=== PATIENT | female | born 1995 | race Caucasian/White ===

== ENCOUNTER 2016-06-08 15:56 | Emergency (ER) | payer MEDICAID ==
[~2016-06-08] VITALS: Ht 172.7 cm; Wt 76.2 kg
[~2016-06-08 15:56] MED LIST: AMOXICILLIN500 M2 PO; AUGMENTIN 875-1 EACH PO; BACTRIM DS 8001 TA1 PO; BACTRIM DS 8001 TAB PO; BENADRYL 25MG C25 MG PO; BENZONATATE100 MG PO; HYDROCODONE1 TABLET PO; IBUPROFEN400 MG PO; IMPLANON68 MG; KEFLEX 250MG.250 MG PO; MEDROL 4MG. DOSE4 MG PO; MONO-LINYAH1 TAB PO; MOTRIN 400MG.400 MG PO; NATURAL IRON65 MG PO; NOMEDS; NOMEDS XX; PERCOCET 5/3251 EACH PO; PHENERGAN 25MG.25 M1 PO; PHENERGAN25 M2 RC; PHENERGAN25 M3 PO; PREDNISONE 5MG.5 MG PO; PRENATAL1 TA2 PO; PRILOSEC OTC20 MG; PROVERA10 MG OR; PYRIDIUM200 M1 PO; SEPTRA DS 800 M1 TAB PO; TYLENOL W/CODEI1 TA2 PO; TYLENOL325 MG PO; ZOFRAN ODT4 MG PO; ZOFRAN4 MG PO
[2016-06-08 16:21] LABS: URINE BILIRUBIN - DIPSTICK NEGATIVE (NEG); URINE BLOOD NEGATIVE (NEG)
[2016-06-08 16:34] LABS: HEMOGLOBIN 12.9 g/dL (12.2-16.2); LYMPH # 2.5 K/mm3 (0.7-4.5); LYMPH % 25.1 % (10-50.0)
[2016-06-08 16:43] LABS: URINE SQUAMOUS CELLS 20-50 #/hpf (0-5)
[2016-06-08] MEDS ORDERED: AMOXICILLIN875 MG PO (16:53)
--- NOTE | 2016-06-08 16:53 | Emergency Room Report ---
History of Present Illness Time Seen by 1603 Presenting Problem in Triage Pt arrived:Walked Presenting Problem:PT STATES WOKE UP THIS AM WITH SHARP PAIN IN UPPER STOMACH- EPIGASTRIC AREA PT STATES PAIN IS INTERMITTENT IN NATURE. 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 N Clinical Suspician of Infection? N Mental Status: 1 - Regular (Normal Baseline) Sepsis Risk:Low Sepsis Risk Have you (or family members/close friends) recently traveled outside the [place]? N If Yes, where/when: Have you had exposure to infectious disease within the past month? N TB? Other? Specify: Source patient, RN notes reviewed, family, RN/MD Exam Limitations no limitations Comment This is a 21-year-old female patient presenting to the emergency room with upper abdominal pain, onset at 9:00 this morning, described as cramping. She is 9 weeks , denies any vaginal discharge or vaginal bleeding. Patient is A0, denies any, but patient's with first . She had on the Internet she could have [place] contractions, which is the reason she is here today. ALLERGIES Coded Allergies: SHELLFISH (FOOD) (From SHELLFISH (FOOD/DRUG)) (Intermediate, - 02/23/15) shellfish derived (From SHELLFISH (FOOD/DRUG)) (Intermediate, - 02/23/15) SEAFOOD (F) (03/18/15) History Medical History General CAD? No Angina: No [place]: No Hypertension? No Hyperlipidemia? No CHF? No DVT? No PE? No COPD? No Asthma? Yes Anemia? No GERD? No Gastric ulcers? No GI Bleed? No Hernia? No Thyroid Problems? No Hypothyroidism? No CVA? No Seizures? No Diabetes? No Insulin Dependent: No Insulin Pump: No Home FSBS? No Renal Insuffiency? No End Stage Renal Disease? No UTI? No Stones? No BPH? No GB Disease: No Nephritic Syndrome? No Asplenia? No Hepatitis? No Sickle Cell Disease? No Arthritis? No Migraines? No Cataracts? No Glaucoma? No MRSA? No HIV? No TB? No Anxiety? No Depression? No Cancer? No More? 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 No: respiratory distress. Lung Sounds bilateral: normal breath sounds, lungs clear. 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 No Comment Upon reevaluation the patient appears medically stable, afebrile and nonseptic looking. Advised patient of findings, instructed her to drink plenty of fluids, take antibiotics prescribed as directed, take Tylenol as needed for pain every 4 -6 hours and follow-up with ObGyn if not better early next week. Results/Orders Laboratory Tests 06/08/16 1615: Sodium 136, Potassium 4.0, Chloride 103, Carbon Dioxide 25, BUN 7, Creatinine 0.6, Estimated Creat Clear 180, Estimated GFR (MDRD) 127, Glucose 81, Calcium 8.2 L, Total Bilirubin 0.2, AST 14 L, ALT 26, Alkaline Phosphatase 69, Total Protein 7.1, Albumin 3.6, Globulin 3.5 H, Albumin/Globulin Ratio 1.0 L, Beta HCG, Quant 611742.6, WBC 10.0, RBC 4.36, Hgb 12.9, Hct 37.6, MCV 86.3, RDW 14.8, Plt Count 321, Gran % 69.7, Gran # 7.0, Lymphocytes % 25.1, Monocytes % 5.2, Lymphocytes # 2.5, Monocytes # 0.5, PUBS MCHC 34.3, MCH 29.6 06/08/16 1605: Urine Color YELLOW, Urine Appearance CLEAR, Urine pH 6.0, Ur Specific [place] 1.025, Urine Protein NEGATIVE, Urine Ketones NEGATIVE, Urine Blood NEGATIVE, Urine Nitrate NEGATIVE, Urine Bilirubin NEGATIVE, Urine Urobilinogen 0.2, Ur Leukocyte Esterase 2+ H, Urine RBC OCC, Urine WBC 10-20, Ur Squamous Epith Cells 20-50, Urine Bacteria 3+, Urine Glucose NEGATIVE Current Medication Orders Sig/Stepan Start time Last Medication Dose Route Stop Time Status Admin Amoxicillin 500 MG ONCE ONE 06/08 1645 CAN PO 06/08 1646 Orders Procedure Date/time Status CBC WITH AUTO DIFF 06/08 1606 Complete CHEM 12 PROFILE 06/08 1606 Complete BETA-HCG, QUANT 06/08 1606 Complete CULTURE, URINE 06/08 1605 Active URINALYSIS/COMPLETE 06/08 1600 Complete URINE 06/08 1600 Active Departure Departure Time of Disposition 1659 Disposition DC Home or Self Care(routine) Clinical Impression Primary Impression: Urinary tract infection Qualifiers: Urinary tract infection type: site unspecified Hematuria presence: without hematuria Qualified Code: N39.0 - Urinary tract infection, site not specified Secondary Impressions: Abdominal pain Qualifiers: Abdominal location: unspecified location Qualified Code: R10.9 - Unspecified abdominal pain Condition STABLE Referrals Amadou PIERCE,A.C. (Family) Patient Instructions DI for Urinary Tract Infection (UTI) Additional Instructions Please drink plenty of fluids, take antibiotics prescribed as directed, Tylenol every 4-6 hours as needed for pain, follow-up with your ObGyn if no better, in 2 -3 days. Discharge Counseling Counseled pt/family regarding diagnosis, test results, medications/RX, home care, follow up needs Comment Please drink plenty of fluids, take antibiotics prescribed as directed, Tylenol every 4-6 hours as needed for pain, follow-up with your ObGyn if no better, in 2 -3 days. Prescriptions Current Visit Scripts AMOXICILLIN (Amoxicillin 875MG Tab) 875 MG PO BID #20 TAB ED Critical Care Critical Care No at 1700
[2016-06-08 17:05] VITALS: BP 116/61
== END 2016-06-08 17:06 | disposition home or self-care (01) ==
LOC: ER 15:56
PROVIDERS: Emergency Medicine
DX: O23.11 Infections of bladder in pregnancy, first trimester (principal); Z3A.09 9 weeks gestation of pregnancy

== ENCOUNTER 2016-06-13 03:49 | Emergency (ER) | payer MEDICAID ==
[~2016-06-13] VITALS: Ht 172.7 cm; Wt 77.1 kg
[~2016-06-13 03:49] MED LIST changes: +AMOXICILLIN875 MG PO
[2016-06-13] MEDS ORDERED: RA PRENATAL TA1 EACH PO (04:03)
[2016-06-13 04:09] LABS: URINE BILIRUBIN - DIPSTICK NEGATIVE (NEG); URINE BLOOD NEGATIVE (NEG)
--- NOTE | 2016-06-13 04:20 | Emergency Room Report ---
History of Present Illness Time Seen by 0400 Presenting Problem in Triage Pt arrived:Walked Presenting Problem:C/O LOWER ABDOMINAL PAIN/PRESSURE. 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 N Clinical Suspician of Infection? Y Mental Status: 1 - Regular (Normal Baseline) Sepsis Risk:Low Sepsis Risk Have you (or family members/close friends) recently traveled outside the [place]? N If Yes, where/when: Have you had exposure to infectious disease within the past month? N TB? Other? Specify: Source patient, RN notes reviewed, old records Exam Limitations no limitations Comment intetmittant lower abd pain with occ spotting in this wf who is about 10 weeks and concerned about - no sev pain or bleeding Cardiac Chest Pain Chest pain indicative of cardiac No Timing/Duration this evening Severity moderate ALLERGIES Coded Allergies: SHELLFISH (FOOD) (From SHELLFISH (FOOD/DRUG)) (Intermediate, - 02/23/15) shellfish derived (From SHELLFISH (FOOD/DRUG)) (Intermediate, - 02/23/15) SEAFOOD (F) (03/18/15) Home Medications Active Scripts AMOXICILLIN (Amoxicillin 875MG Tab) 875 MG PO BID #20 TAB Prov: 06/08/16 Reported Medications Vit/Iron Fumarate/FA (Ra Tablet) 1 EACH PO DAILY #30 History Medical History General CAD? No Angina: No [place]: No Hypertension? No Hyperlipidemia? No CHF? No DVT? No PE? No COPD? No Asthma? Yes Anemia? No GERD? No Gastric ulcers? No GI Bleed? No Hernia? No Thyroid Problems? No Hypothyroidism? No CVA? No Seizures? No Diabetes? No Insulin Dependent: No Insulin Pump: No Home FSBS? No Renal Insuffiency? No End Stage Renal Disease? No UTI? No Stones? No BPH? No GB Disease: No Nephritic Syndrome? No Asplenia? No Hepatitis? No Sickle Cell Disease? No Arthritis? No Migraines? No Cataracts? No Glaucoma? No MRSA? No HIV? No TB? No Anxiety? No Depression? No Cancer? No More? 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 Respiratory denies cough, denies shortness of breath, denies wheezing Cardiovascular denies chest pain, denies palpitations, denies syncope Gastrointestinal denies abdominal pain, denies diarrhea, denies vomiting Genitourinary see HPI. denies: abnormal vaginal bleeding, dysuria, frequency, hesitancy, hematuria. Musculoskeletal denies back pain, denies joint pain, denies joint swelling, denies neck pain Skin denies rash Psychiatric/Neurological denies headache, denies seizure Physical Exam Vital Signs Vital Signs Date Time Temp Pulse Resp B/P Pulse O2 O2 Flow FiO2 Ox Delivery Rate 06/13 0355 98.7 89 18 135/86 100 - WBC >12,000 or <4,000 or 10% bands? 2 or more SIRS Criteria Met? B/P:135/86 MAP:102 Creatinine >2.0? UA output<0.5ml/kg/hr for 2 hrs? Platelet count >100,000? Lactate >2.0mmol/1? INR >1.2 or PTT > than 60 sec? Evidence of Organ Dysfunction? Provider documented clinical suspician of infection? Y Sepsis Criteria Count: 1 Sepsis Risk: Low Sepsis Risk General Appearance no apparent distress Eye Exam - bilateral eye PERRL, bilateral eye EOMI Ear, Nose, Throat normal ENT inspection Neck supple Respiratory Status No: respiratory distress. 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 No Results/Orders Laboratory Tests 06/13/16 0355: Urine Color YELLOW, Urine Appearance CLEAR, Urine pH 7.5, Ur Specific [place] 1.010, Urine Protein NEGATIVE, Urine Ketones NEGATIVE, Urine Blood NEGATIVE, Urine Nitrate NEGATIVE, Urine Bilirubin NEGATIVE, Urine Urobilinogen 0.2, Ur Leukocyte Esterase 1+ H, Urine WBC 10-20, Ur Squamous Epith Cells 10-20, Amorphous Sediment 1+, Urine Bacteria 1+, Urine Trichomonas 1+, Urine Glucose NEGATIVE Orders Procedure Date/time Status CULTURE, URINE 06/13 354 Active URINALYSIS/COMPLETE 06/14 351 Complete Departure Departure Time of Disposition 430 Disposition DC Home or Self Care(routine) Clinical Impression Primary Impression: Qualifiers: Weeks of gestation: 10 weeks Qualified Code: Z3A.10 - 10 weeks gestation of Condition STABLE Referrals Golden PIERCE,Scott Modi Patient Instructions DI for -- Discomforts and Remedies Additional Instructions call ob this am for follow up Discharge Counseling Counseled pt/family regarding diagnosis, test results, medications/RX, follow up needs ED Critical Care Critical Care No Comments offered to have pt wait till u/s pharmacy technician infusion come in this am as she was stable and known iup - at 0439
--- NOTE | 2016-06-13 04:20 | Emergency Room Report ---
History of Present Illness Time Seen by 0400 Presenting Problem in Triage Pt arrived:Walked Presenting Problem:C/O LOWER ABDOMINAL PAIN/PRESSURE. 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 N Clinical Suspician of Infection? Y Mental Status: 1 - Regular (Normal Baseline) Sepsis Risk:Low Sepsis Risk Have you (or family members/close friends) recently traveled outside the [place]? N If Yes, where/when: Have you had exposure to infectious disease within the past month? N TB? Other? Specify: Source patient, RN notes reviewed, old records Exam Limitations no limitations Comment intetmittant lower abd pain with occ spotting in this wf who is about 10 weeks and concerned about - no sev pain or bleeding Cardiac Chest Pain Chest pain indicative of cardiac No Timing/Duration this evening Severity moderate ALLERGIES Coded Allergies: SHELLFISH (FOOD) (From SHELLFISH (FOOD/DRUG)) (Intermediate, - 02/23/15) shellfish derived (From SHELLFISH (FOOD/DRUG)) (Intermediate, - 02/23/15) SEAFOOD (F) (03/18/15) Home Medications Active Scripts AMOXICILLIN (Amoxicillin 875MG Tab) 875 MG PO BID #20 TAB Prov: 06/08/16 Reported Medications Vit/Iron Fumarate/FA (Ra Tablet) 1 EACH PO DAILY #30 History Medical History General CAD? No Angina: No [place]: No Hypertension? No Hyperlipidemia? No CHF? No DVT? No PE? No COPD? No Asthma? Yes Anemia? No GERD? No Gastric ulcers? No GI Bleed? No Hernia? No Thyroid Problems? No Hypothyroidism? No CVA? No Seizures? No Diabetes? No Insulin Dependent: No Insulin Pump: No Home FSBS? No Renal Insuffiency? No End Stage Renal Disease? No UTI? No Stones? No BPH? No GB Disease: No Nephritic Syndrome? No Asplenia? No Hepatitis? No Sickle Cell Disease? No Arthritis? No Migraines? No Cataracts? No Glaucoma? No MRSA? No HIV? No TB? No Anxiety? No Depression? No Cancer? No More? 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 Respiratory denies cough, denies shortness of breath, denies wheezing Cardiovascular denies chest pain, denies palpitations, denies syncope Gastrointestinal denies abdominal pain, denies diarrhea, denies vomiting Genitourinary see HPI. denies: abnormal vaginal bleeding, dysuria, frequency, hesitancy, hematuria. Musculoskeletal denies back pain, denies joint pain, denies joint swelling, denies neck pain Skin denies rash Psychiatric/Neurological denies headache, denies seizure Physical Exam Vital Signs Vital Signs Date Time Temp Pulse Resp B/P Pulse O2 O2 Flow FiO2 Ox Delivery Rate 06/13 0355 98.7 89 18 135/86 100 - WBC >12,000 or <4,000 or 10% bands? 2 or more SIRS Criteria Met? B/P:135/86 MAP:102 Creatinine >2.0? UA output<0.5ml/kg/hr for 2 hrs? Platelet count >100,000? Lactate >2.0mmol/1? INR >1.2 or PTT > than 60 sec? Evidence of Organ Dysfunction? Provider documented clinical suspician of infection? Y Sepsis Criteria Count: 1 Sepsis Risk: Low Sepsis Risk General Appearance no apparent distress Eye Exam - bilateral eye PERRL, bilateral eye EOMI Ear, Nose, Throat normal ENT inspection Neck supple Respiratory Status No: respiratory distress. 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 No Results/Orders Laboratory Tests 06/13/16 0355: Urine Color YELLOW, Urine Appearance CLEAR, Urine pH 7.5, Ur Specific [place] 1.010, Urine Protein NEGATIVE, Urine Ketones NEGATIVE, Urine Blood NEGATIVE, Urine Nitrate NEGATIVE, Urine Bilirubin NEGATIVE, Urine Urobilinogen 0.2, Ur Leukocyte Esterase 1+ H, Urine WBC 10-20, Ur Squamous Epith Cells 10-20, Amorphous Sediment 1+, Urine Bacteria 1+, Urine Trichomonas 1+, Urine Glucose NEGATIVE Orders Procedure Date/time Status CULTURE, URINE 06/13 354 Active URINALYSIS/COMPLETE 06/14 351 Complete Departure Departure Time of Disposition 430 Disposition DC Home or Self Care(routine) Clinical Impression Primary Impression: Qualifiers: Weeks of gestation: 10 weeks Qualified Code: Z3A.10 - 10 weeks gestation of Condition STABLE Referrals Golden PIERCE,Scott Modi Patient Instructions DI for -- Discomforts and Remedies Additional Instructions call ob this am for follow up Discharge Counseling Counseled pt/family regarding diagnosis, test results, medications/RX, follow up needs ED Critical Care Critical Care No Comments offered to have pt wait till u/s profile grinder technician come in this am as she was stable and known iup - at 0432
[2016-06-13 04:38] VITALS: BP 125/76
== END 2016-06-13 04:39 | disposition home or self-care (01) ==
LOC: ER 03:49
PROVIDERS: Emergency Medicine
DX: Z3A.10 10 weeks gestation of pregnancy (principal)

== ENCOUNTER 2016-09-30 22:24 | Emergency (ER) | payer MEDICAID ==
[~2016-09-30] VITALS: Ht 175.3 cm
[~2016-09-30 22:24] MED LIST changes: +RA PRENATAL TA1 EACH PO
== END 2016-09-30 23:37 | disposition left against medical advice (07) ==
LOC: ER 22:24
DX: Z53.29 Procedure and treatment not carried out because of patient's decision for other reasons (principal)

== ENCOUNTER 2016-11-06 00:47 | Outpatient (CLI) | payer MEDICAID ==
[~2016-11-06] VITALS: Ht 172.7 cm; Wt 89.4 kg
[2016-11-06 01:12] VITALS: BP 126/69
[2016-11-06 01:24] LABS: URINE BILIRUBIN - DIPSTICK NEGATIVE (NEG); URINE BLOOD NEGATIVE (NEG)
[2016-11-06 01:29] LABS: AMPHETAMINES/METAMPHETAMINES NEGATIVE ng/mL (<1000)
== END 2016-11-06 01:50 | disposition home or self-care (01) ==
LOC: OBOUT 00:47 → OB 00:49 → OBOUT 01:50
PROVIDERS: Obstetrics & Gynecology
DX: O26.93 Pregnancy related conditions, unspecified, third trimester (principal); Z3A.30 30 weeks gestation of pregnancy; M54.5 Low back pain

== ENCOUNTER → 2016-11-15 | Outpatient (CLI) | payer MEDICAID ==
--- NOTE | 2016-11-15 15:24 | RADIOLOGY REPORT PS360 ---
US PREG FOLLOWUP SINGLE FETUS INDICATION: DECREASED MOVEMENT. TECHNIQUE: ultrasound transabdominal scanning/ MW COMPARISON: 20 week anatomy scan 08/22/2016 study performed due to decreased movement of the fetus FINDINGS Single viable intrauterine gestation. Cephalic position. The cervix appears satisfactory. Long, closed and measuring 2.34 centimeter in length. Complete survey performed and was unremarkable on the submitted images as in PACS.No discrete anomalies identified on survey imaging by technologist Active fetus. Three-vessel cord with satisfactory umbilical cord insertion. . Survey of brain & ventricles. Face and neck survey unremarkable. Diaphragm & views chest unremarkable. abdomen: Both kidneys noted & unremarkable. Stomach noted & satisfactory. spine: Survey of the spine satisfactory with no anomalies identified nor imaged Both arms and legs noted. Amniotic fluid.-Adequate. Maternal adnexa -no significant findings. measurements:. Average ultrasound age 31 weeks 4 days. Gestational age 32 weeks 6 days. BPD = 1.79 cm equaling 31 weeks 2 days OFD = 1 0.7 cm equaling 34 weeks 0 days HC = 29.4 cm equaling 32 weeks 4 days AC = 26.75 cm equaling 31 weeks 0 days FL = 5.95 cm equaling 31 weeks 1 day Heart rate = 140 BPM. Biophysical profile was 8 out of 8 Umbilical artery peak systolic velocity was 45.6 cm/s and end-diastolic velocity 16.0 cm/s. The R I is 0.65 and the SD ratio is 2.9 IMPRESSION: Single viable intrauterine gestation in breech position currently. 31 weeks 4 daysaverage ultrasound age with today's measurements Anterior placenta. Active fetus. No discrete abnormalities on the ultrasound survey.
== END ==
LOC: RAD 12:47
DX: O36.5131 Maternal care for known or suspected placental insufficiency, third trimester, fetus 1 (principal)

== ENCOUNTER 2016-11-26 20:13 | Outpatient (CLI) | payer MEDICAID ==
[~2016-11-26] VITALS: Ht 170.2 cm; Wt 92.1 kg
[2016-11-26 20:32] VITALS: BP 129/68
[2016-11-26 20:44] LABS: URINE BILIRUBIN - DIPSTICK NEGATIVE (NEG); URINE BLOOD NEGATIVE (NEG)
[2016-11-26 20:51] LABS: AMPHETAMINES/METAMPHETAMINES NEGATIVE ng/mL (<1000)
== END 2016-11-26 22:50 | disposition home or self-care (01) ==
LOC: OBOUT 20:13 → OB 20:15 → OBOUT 22:50
PROVIDERS: Nurse Practitioner Obstetrics & Gynecology
DX: O60.03 Preterm labor without delivery, third trimester (principal); Z3A.34 34 weeks gestation of pregnancy

== ENCOUNTER 2016-11-27 16:31 | Outpatient (CLI) | payer MEDICAID | END 2016-11-27 17:11 | disposition home or self-care (01) | LOC: OBOUT 16:31 → OB 16:34 → OBOUT 17:11 | DX: O60.03 Preterm labor without delivery, third trimester (principal); Z3A.34 34 weeks gestation of pregnancy ==

== ENCOUNTER 2016-11-28 02:53 | Outpatient (CLI) | payer MEDICAID ==
[~2016-11-28] VITALS: Ht 170.2 cm; Wt 93.9 kg
[2016-11-28 03:00] VITALS: BP 133/62
== END 2016-11-28 03:40 ==
LOC: OBOUT 02:53 → OB 02:53 → OBOUT 03:40
DX: O60.03 Preterm labor without delivery, third trimester (principal); Z3A.34 34 weeks gestation of pregnancy

== ENCOUNTER 2016-11-29 01:50 | Outpatient (CLI) | payer MEDICAID ==
[~2016-11-29] VITALS: Ht 170.2 cm; Wt 93.9 kg
[2016-11-29 02:02] VITALS: BP 127/67
== END 2016-11-29 03:00 ==
LOC: OBOUT 01:50 → OB 01:50 → OBOUT 03:00
DX: O26.93 Pregnancy related conditions, unspecified, third trimester (principal); Z3A.34 34 weeks gestation of pregnancy; O36.8190 Decreased fetal movements, unspecified trimester, not applicable or unspecified

== ENCOUNTER → 2016-11-30 | Outpatient (CLI) | payer MEDICAID ==
--- NOTE | 2016-11-30 15:01 | RADIOLOGY REPORT PS360 ---
US PREG FOLLOWUP SINGLE FETUS, US BIOPHYSICAL PROFILE, SD RATIO UMBILICAL ARTERY: Indication: DECREASED MOVEMENT ORDERING PHYSICIAN: Scott Franks MD PATIENT AGE: 21 years FINDINGS: The following parameters are obtained: Average ultrasound age is 34 weeks 0 days. Estimated due date by ultrasound is 01/11/2017. Estimated due date by last menstrual period is 01/04/2017.. Estimated weight is 2001 93 g which is 18th percentile. Cephalic position. BPD: 34 weeks 2 days OFD: 33 weeks 4 days HC: 33 weeks 4 days AC: 33 weeks 6 days FL: 34 weeks 0 days heart rate: Not recorded bpm. HC/AC: 1.01 Cephalic index: 80% FL/BPD: 78% FL/AC: 22% Amniotic fluid index: 7.0 Qualitative AFV: 2 breathing movements: 2 Gross body movements: 2 Tone: 2 Biophysical profile score: 8/8 Doppler evaluation of the umbilical artery: SD ratio: 2.3 Resistive index: 0.57 No obvious anomalies evident. Placenta: Anterior. No previa or abruption. Grade 2 Cervix: Appears closed and measures 3 cm IMPRESSION: Live intrauterine gestation which is in cephalic presentation with average ultrasound age of 34 weeks 0 days. Please see above for detail. Biophysical profile is 8 of 8. Amniotic fluid index however slightly low at 7 cm
== END ==
LOC: RAD 09:23
DX: O36.8131 Decreased fetal movements, third trimester, fetus 1 (principal)

== ENCOUNTER → 2016-12-11 | Outpatient (CLI) | payer MEDICAID ==
[~2016-12-11] MED LIST changes: +IRON TABLETS325 MG PO
== END ==
LOC: LAB 16:58
DX: Z34.80 Encounter for supervision of other normal pregnancy, unspecified trimester (principal)

== ENCOUNTER 2016-12-15 02:45 | Outpatient (CLI) | payer MEDICAID ==
[~2016-12-15] VITALS: Ht 170.2 cm; Wt 94.3 kg
[~2016-12-15 02:45] MED LIST changes: -IRON TABLETS325 MG PO
[2016-12-15 03:07] VITALS: BP 117/83
[2016-12-15] MEDS ORDERED: IRON TABLETS325 MG PO (03:10)
[2016-12-15 03:13] LABS: URINE BILIRUBIN - DIPSTICK NEGATIVE (NEG); URINE BLOOD NEGATIVE (NEG)
[2016-12-15 03:22] LABS: AMPHETAMINES/METAMPHETAMINES NEGATIVE ng/mL (<1000)
== END 2016-12-15 04:15 | disposition home or self-care (01) ==
LOC: OB 02:45 → OBOUT 02:45 → OB 02:48 → OBOUT 04:15
PROVIDERS: Obstetrics & Gynecology
DX: O62.9 Abnormality of forces of labor, unspecified (principal); Z3A.37 37 weeks gestation of pregnancy

== ENCOUNTER 2016-12-16 11:21 | Outpatient (CLI) | payer MEDICAID ==
[~2016-12-16] VITALS: Ht 170.2 cm; Wt 96.2 kg
[~2016-12-16 11:21] MED LIST changes: +IRON TABLETS325 MG PO
[2016-12-16 11:52] VITALS: BP 126/68
[2016-12-16 12:10] LABS: URINE BILIRUBIN - DIPSTICK NEGATIVE (NEG); URINE BLOOD NEGATIVE (NEG)
== END 2016-12-16 12:56 | disposition home or self-care (01) ==
LOC: OBOUT 11:21 → OB 11:22 → OBOUT 12:56
PROVIDERS: Obstetrics & Gynecology
DX: O62.9 Abnormality of forces of labor, unspecified (principal); Z3A.37 37 weeks gestation of pregnancy

== ENCOUNTER 2016-12-18 16:49 | Outpatient (CLI) | payer MEDICAID ==
[~2016-12-18] VITALS: Ht 170.2 cm; Wt 97.1 kg
[2016-12-18 17:17] VITALS: BP 110/67
[2016-12-18 18:14] LABS: URINE BILIRUBIN - DIPSTICK NEGATIVE (NEG); URINE BLOOD NEGATIVE (NEG)
[2016-12-18 20:59] LABS: URINE SQUAMOUS CELLS 20-50 #/hpf (0-5)
== END 2016-12-18 17:55 | disposition home or self-care (01) ==
LOC: OBOUT 16:49 → OB 16:49 → OBOUT 17:55
PROVIDERS: Nurse Practitioner Obstetrics & Gynecology
DX: O62.9 Abnormality of forces of labor, unspecified (principal); Z3A.37 37 weeks gestation of pregnancy

== ENCOUNTER 2016-12-25 21:10 | Inpatient (IN) | payer MEDICAID ==
[~2016-12-25] VITALS: Ht 167.6 cm; Wt 97.2 kg
[2016-12-25 21:46] VITALS: BP 134/65
[2016-12-25 21:48] LABS: URINE BILIRUBIN - DIPSTICK NEGATIVE (NEG); URINE BLOOD NEGATIVE (NEG)
[2016-12-25 22:02] LABS: AMPHETAMINES/METAMPHETAMINES NEGATIVE ng/mL (<1000)
--- OUTSIDE RECORDS SUMMARY | 2016-12-26 00:19 | External Medical Summary Rpt | CCD ---
Author Author , MONICA Organization MONICA Address Unknown Phone [email or web address] Immunization Name Date Rout CVX Reac Dose Comm Prov Is Faci e tion ent ider Refu lity Give sed n Tdap 02-2 115 999 Hist H149 No H149 , 4-20 oric Adso 09 al rbed Info rmat ion - Sour ce Unsp ecif ied Vari 05-0 21 999 Hist H109 No H109 cell 6-20 oric a 02 al Info rmat ion - Sour ce Unsp ecif ied MMR 02-0 3 999 Hist H149 No H149 6-20 oric 01 al Info rmat ion - Sour ce Unsp ecif ied DTaP 02-0 107 999 Hist H149 No H149 , UF 6-20 oric 01 al Info rmat ion - Sour ce Unsp ecif ied Cesar 02-0 10 999 Hist H149 No H149 o-IP 6-20 oric V 01 al Info rmat ion - Sour ce Unsp ecif ied Hib, 04-2 17 999 Hist H109 No H109 UF 1-19 oric 98 al Info rmat ion - Sour ce Unsp ecif ied MMR 04-2 3 999 Hist H109 No H109 1-19 oric 98 al Info rmat ion - Sour ce Unsp ecif ied DTaP 04-2 107 999 Hist H109 No H109 , UF 1-19 oric 98 al Info rmat ion - Sour ce Unsp ecif ied Hep 07-2 8 999 Hist H109 No H109 B, 8-19 oric ped/ 97 al adol Info rmat ion - Sour ce Unsp ecif ied Cesar 07-2 2 999 Hist H109 No H109 o-OP 8-19 oric V 97 al Info rmat ion - Sour ce Unsp ecif ied DTaP 07-2 107 999 Hist H109 No H109 , UF 8-19 oric 97 al Info rmat ion - Sour ce Unsp ecif ied Hib, 07-2 17 999 Hist H109 No H109 UF 8- oric 97 al Info rmat ion - Sour ce Unsp ecif ied DTaP 05-2 107 999 Hist H109 No H109 , UF 9- oric 97 al Info rmat ion - Sour ce Unsp ecif ied Hib, 05-2 17 999 Hist H109 No H109 UF 9- oric 97 al Info rmat ion - Sour ce Unsp ecif ied Cesar 05-2 2 999 Hist H109 No H109 o-OP 9- oric V 97 al Info rmat ion - Sour ce Unsp ecif ied Hep 03-2 8 999 Hist H109 No H109 B, 5-19 oric ped/ 97 al adol Info rmat ion - Sour ce Unsp ecif ied DTP- 03-2 22 999 Hist H109 No H109 Hib 5- oric 97 al Info rmat ion - Sour ce Unsp ecif ied Cesar 03-2 2 999 Hist H109 No H109 o-OP 5-19 oric V 97 al Info rmat ion - Sour ce Unsp ecif ied
--- OUTSIDE RECORDS SUMMARY | 2016-12-26 00:19 | External Medical Summary Rpt | CCD ---
Author Author , MONICA Organization [facility] Address Unknown Phone [email or web address] Immunization Name Date Rout CVX Reac Dose [...]
[2016-12-26 04:12] LABS: HEMOGLOBIN 10.7 g/dL (12.2-16.2); LYMPH # 2.8 K/mm3 (0.7-4.5); LYMPH % 17.7 % (10-50.0)
[2016-12-26 05:00] LABS: ABO BLOOD TYPE O; RH BLOOD TYPE POSITIVE
[2016-12-26 05:42] LABS: NEUTROPHILS 81 % (42-76)
--- NOTE | 2016-12-26 07:39 | LABOR NOTE ---
Laboring Subjective Subjective Date 12/26/16 Time 0737 Subjective: Pt is having regular contractions Laboring Objective Objective NST: Reactive Contractions: q 4-5 minutes Cervical dilation: 4 Effacement: 80% Station: -1 Membranes are: Artificially ruptured (with clear fluid) Fetus monitoring? Yes Type: External Laboring Assessment Assessment Progressing? Yes Cephalopelvic disproportion? No Problem List: 1. Normal delivery Laboring Plan Plan Anethesia for epidural? Yes Continue to labor down? Yes Plan for ? No Continue to monitor? Yes Start pushing? No Comment: She came in last night having regular contractions. She was observed overnight and continued to contract despite receiving IV fluids. She has progressed from 2 cm to 4 cm. As result of that we have rupture membranes and we will plan a vaginal delivery. at 0765
[2016-12-26 08:37] VITALS: BP 110/67
[2016-12-26 09:13] LABS: URINE BILIRUBIN - DIPSTICK NEGATIVE (NEG); URINE BLOOD NEGATIVE (NEG)
[2016-12-26 09:30] LABS: URINE SQUAMOUS CELLS OCC #/hpf (0-5)
--- NOTE | 2016-12-26 09:54 | LABOR NOTE ---
Laboring Subjective Subjective Date 12/26/16 Time 0953 Subjective: Pt is having regular contractions Laboring Objective Objective NST: Reactive Contractions: q 2-3 minutes Cervical dilation: 9 Effacement: 100% Station: +1 Membranes are: Artificially ruptured Fetus monitoring? Yes Type: Internal and External Comment: An IUPC was inserted Laboring Assessment Assessment Progressing? Yes Cephalopelvic disproportion? No Problem List: 1. Normal delivery Laboring Plan Plan Anethesia for epidural? Yes Continue to labor down? Yes Plan for ? No Continue to monitor? Yes Start pushing? No at 0940
--- NOTE | 2016-12-26 10:28 | Delivery Note ---
Delivery note Delivery date: 12/26/16 Delivery time: 1017 Anesthesia: Epidural, Lalo Mcclelland Was labor medically induced? No Gestational age in weeks: 37 weeks Days: 6 days Delivery prior to 39 weeks? Yes Justification for delivery: Active labor Sex: female score at one minute: 8 at 5 minutes: 9 Type of suction: bulb AF: Clear fluid LAC or MLE: LAC (none) Delivery procedure: Normal Delivery Delivery of placenta: spontaneous Clinical note She is a 21-year-old 3 para 1 aborta 1 who was 37 and 6 weeks gestational age. She came in in active labor and was found to be 2 cm dilated. She subsequent was observed overnight and progressed to 4 cm dilation. As result of that we elected to deliver her. She had her membrane was ruptured and under labor epidural progressed to full dilation. She delivered spontaneously a liveborn female child at 10:17 AM on the morning of December 26, 2016. On delivery the head she rapidly delivered the anterior shoulder and the rest of the infant's body atraumatically. The oropharynx and nasopharynx were bulb suctioned. The baby cried spontaneously. We allowed the cord continue to pulsate for approximately 1 minute. We then doubly clamped the cord and the infant was then placed on the mother's abdomen for further care. The nurses assigned Apgars of 8 at 1 minute and 9 at 5 minutes. We then obtained cord blood as well as cord pH. The pH is currently pending. Using gentle traction on the cord and countertraction on the fundus I was able to easily deliver the placenta intact. It had a normal three-vessel cord. There were no perineal or vaginal lacerations. She has O positive blood, she is rubella immune and was group B streptococcus positive. She did receive IV antibiotics while in labor. She plans to bottlefeed. Her client relations representative is Dr. Mendez. Estimated blood loss was approximately 400 mL. at [id number]
[2016-12-26 19:41] VITALS: BP 113/71
[2016-12-27 07:09] LABS: HEMOGLOBIN 10.3 g/dL (12.2-16.2)
--- NOTE | 2016-12-27 07:53 | ACUTE CARE PROGRESS NOTE (QUA) ---
Progress Notes Subjective Date 12/27/16 Time 0749 Note She is doing well this morning. She is eating and drinking and ambulating. She is bottlefeeding. Her lochia is normal. Patient/family reports: feeling better, no complaints Objective Findings Last VS-Temp:98.4 B/P:113/71 Pulse:78 Resp:18 SaO2: Last weight lbs:214 oz:6 K.240 Method:Digital Scales Laboratory Tests 12/27/16 0604: Hgb 10.3 L, Hct 30.8 L 12/26/16 1025: Cord Blood pH 7.39 12/26/16 0810: Urine Color YELLOW, Urine Appearance CLEAR, Urine pH 6.0, Ur Specific [place] <= 1.005, Urine Protein NEGATIVE, Urine Ketones NEGATIVE, Urine Blood NEGATIVE, Urine Nitrate NEGATIVE, Urine Bilirubin NEGATIVE, Urine Urobilinogen 0.2, Ur Leukocyte Esterase NEGATIVE, Urine RBC NONE, Urine WBC NONE, Ur Squamous Epith Cells OCC, Urine Bacteria NONE, Urine Glucose NEGATIVE Exam General appearance: normal appearance, alert, awake, no acute distress Reviewed: vital signs, lab results Assessment/Plan Problem List 1. Normal delivery Patient condition Improving, Stable Plan: continue current care This inpt stay is expected to cross 2 MNs from start of care Yes Comments: She is doing very well this morning. We will plan to send her home tomorrow. at 0752
[2016-12-27 20:05] VITALS: BP 121/66
[2016-12-28 08:03] VITALS: BP 116/58
[2016-12-28] MEDS ORDERED: MOTRIN 400MG.400 MG PO (10:33)
[2016-12-28] MEDS ORDERED: PERCOCET 5/3251 EACH PO (10:34)
--- NOTE | 2016-12-28 10:39 | Discharge Summary ---
Discharge Summary Admission date: 12/25/16 Discharge date: 12/28/16 Discharge diagnoses: Term , spontaneous vaginal delivery Clinical note: She is a 21-year-old 3 now para 2 aborta 1 who is 37 and 5 weeks gestational age. She came in in active labor and was having regular contractions. She was observed overnight and changed her cervix from 2-4 cm. As result of that we elected to deliver her. Course in hospital: She change her cervix from 2-4 cm overnight and was having regular contractions. As result of that we elected to let her deliver. She had her membranes ruptured and under labor epidural she progressed to full dilation. She delivered spontaneously a liveborn female child at 10:17 AM on the morning of December 26, 2016. The baby was a liveborn female child weighing 5 lbs. 11 oz. with Apgars of 8 at 1 minute and 9 at 5 minutes. She has done well and has remained afebrile throughout her hospitalization. She is eating and drinking and ambulating. She is bottlefeeding. Her lochia is normal. She has O positive blood, she is rubella immune and she was group B streptococcus positive. She did receive IV antibiotics while in labor. Laboratory Tests 12/27/16 0604: Hgb 10.3 L, Hct 30.8 L 12/26/16 1025: Cord Blood pH 7.39 12/26/16 0810: Urine Color YELLOW, Urine Appearance CLEAR, Urine pH 6.0, Ur Specific [place] <= 1.005, Urine Protein NEGATIVE, Urine Ketones NEGATIVE, Urine Blood NEGATIVE, Urine Nitrate NEGATIVE, Urine Bilirubin NEGATIVE, Urine Urobilinogen 0.2, Ur Leukocyte Esterase NEGATIVE, Urine RBC NONE, Urine WBC NONE, Ur Squamous Epith Cells OCC, Urine Bacteria NONE, Urine Glucose NEGATIVE 12/26/16 0350: MCH 29.3 12/26/16 0350: WBC 15.5 H, RBC 3.65 L, Hgb 10.7 L, Hct 32.3 L, MCV 88.6, RDW 13.3, Plt Count 369, MPV 7.1 L, Gran % 74.1, Gran # 11.5 H, Total Counted 100, Lymphocytes % 17.7, Monocytes % 6.1, Eosinophils % 1.7, Basophils % 0.3, Neutrophils 81 H, Lymphocytes (Manual) 14, Lymphocytes # 2.8, Monocytes (Manual ) 5, Monocytes # 1.0, Eosinophils # 0.3, Basophils # 0.0, Platelet Estimate NORMAL, Anisocytosis 1+, PUBS MCHC 33.1, Antibody Screen NEGATIVE, Miscellaneous Test POSITIVE 12/25/162114: Membrane Rupture NEGATIVE FOR RUPTURE, Opiates Screen NEGATIVE, Urine Methadone Screen NEGATIVE, Barbiturates NEGATIVE, Phencyclidine Screen NEGATIVE, Amphetamines Screen NEGATIVE, Benzodiazepines Screen NEGATIVE, Cocaine Screen NEGATIVE, Marijuana (THC) Screen NEGATIVE, Urine Color YELLOW, Urine Appearance CLOUDY, Urine pH 7.0, Ur Specific [place] 1.015, Urine Protein NEGATIVE, Urine Ketones NEGATIVE, Urine Blood NEGATIVE, Urine Nitrate NEGATIVE, Urine Bilirubin NEGATIVE, Urine Urobilinogen 0.2, Ur Leukocyte Esterase TRACE H, Urine RBC OCC, Urine WBC OCC, Ur Squamous Epith Cells 5-10, Amorphous Sediment 2+, Urine Bacteria 3+, Urine Glucose NEGATIVE Microbiology Date/Time Procedure - Status Source Growth 12/25 2114 Urine Culture - COMP URINE CC Plans for ongoing care: She is discharged home to follow-up with me in 2 weeks' time. Discharge medications She'll continue with her vitamins and iron. She was given a prescription for Motrin 400 mg to take every 4 hours as needed for pain. She was given 40 tablets. She was given a prescription for Percocet 5/325, 12 tablets. DC/follow-up instructions She was given the usual instructions with respect to limiting her activity, driving and sexual activity. Condition at discharge Stable and improved at 1031
== END 2016-12-28 11:00 | disposition home or self-care (01) | DRG 775 ==
LOC: OBOUT 21:10 → OB 21:10 → OBOUT 23:49 → OB 23:51
PROVIDERS: Nurse Practitioner Obstetrics & Gynecology
PROC: 10E0XZZ Delivery of Products of Conception, External Approach (ICD-10-PCS; principal; 2016-12-26)
DX: O80 Encounter for full-term uncomplicated delivery (principal); Z37.0 Single live birth; Z3A.37 37 weeks gestation of pregnancy
CPT/HCPCS: C1758; J0290; J0595